=== PATIENT | male | born 1975 | race Caucasian/White ===

== ENCOUNTER 2017-07-04 13:15 | Emergency (ER) | payer BC ==
[~2017-07-04] VITALS: Ht 172.7 cm; Wt 96.5 kg
[2017-07-04 13:20] VITALS: Ht 172.7 cm; Wt 96.5 kg
[2017-07-04] MEDS ORDERED: CLOT30CR24 TOP (15:10)
--- NOTE | 2017-07-04 15:49 | ERD ---
ER Documentation Chief Complaint Date/Time DATE: 07/04/17 TIME: 15:42 Chief Complaint VOMITING,ABDOMINAL PAIN,RASHES ON JOCE LOWER EXT. HPI 41-year-old male complaining of abdominal pain and vomiting since this morning. He vomited twice this morning, last episode was at 8 AM. Patient also reports soft stool 2 today. He had epigastric abdominal pain during vomiting, but no abdominal pain right now. Patient has history of gastritis. Denies fever or chills. Denies respiratory symptoms. Patient also complaining of pruritic rash 1 week. Patient stated the rash started on the bilateral inner ankles, along the sock line. Last few days the rash had spread to his right thigh. Denies pain or swelling. ROS All systems reviewed and are negative except as per history of present illness. Medications Home Meds Active Scripts Clotrimazole* (Clotrimazole* AF) 1% - 30 Gm Cream.gm., 1 APPLIC TOP BID for 14 Days, TUB Prov:BULL SUAZO HISTOLOGY ASSISTANT 07/04/17 PMhx/Soc Medical and Surgical Hx: pt denies Medical Hx, pt denies Surgical Hx Physical Exam Vitals Vital Signs Date Time Temp Pulse Resp B/P Pulse Ox O2 Delivery O2 Flow Rate FiO2 07/04/17 13:20 98.2 60 18 108/62 Physical Exam General: Well-developed, well-nourished, conscious and coherent, in no distress Skin: Warm and dry, good texture and turgor. Erythematous papular macular lesions noted patient's bilateral medial ankles, and lateral right thigh. The lesions have circular, raised, erythematous borders. Head: Normocephalic without evidence of trauma Eyes: Sclera and conjunctivae normal; pupils equal, round, and reactive to light; extraocular movements are intact Neck: Supple without meningismus or adenopathy. Carotids are equal. Trachea midline. No bruits or JVD Chest: Normal AP diameter. Good expansion without retractions. Nontender. Lungs are clear to auscultate bilaterally with good tidal volume Heart: Regular rate and rhythm. No murmur, rub, or gallops heard Abdomen: Soft and nontender without masses, guarding, or rebound. Bowel sounds are active. No hepatosplenomegaly Back: Without spinal or CVA tenderness Extremities: Full range of motion. Good strength bilaterally. No clubbing, cyanosis, or edema. Peripheral pulses are intact. Sensation intact Neuro: Alert and oriented 4, GCS 15. Cranial nerves grossly intact. Motor and sensory exams nonfocal. Moves all extremities. Speech clear. Gait normal Procedures/MDM Patient is afebrile, does not have any abdominal tenderness on palpation. I doubt acute appendicitis, cholecystitis or other acute abdomen. Patient's symptoms is consistent with that of viral gastroenteritis. Patient does not have any active vomiting, is able to maintain by mouth fluid intake. Patient advised to increase fluid intake, and maintain a bland diet for next to 3 days. Patient also presents with skin lesions that are consistent with tinea corporis. Patient is advised to keep his skin clean and dry. Patient appears well, stable for discharge and outpatient management. Medical decision making shared with patient and family. Education provided to patient and family. Patient and family expressed understanding of the plan. Medications on discharge: Clotrimazole. Follow-up: Primary care provider in 2-3 days or return to ED if worse. Disclaimer: Inadvertent spelling and grammatical errors are likely due to EHR/ dictation software use and do not reflect on the overall quality of patient care. Also, please note that the electronic time recorded on this note does not necessarily reflect the actual time of the patient encounter. Departure Diagnosis: Primary Impression: Vomiting Additional Impression: Tinea corporis Condition: Stable Patient Instructions: Tinea Corporis, Vomiting (5Y-Adult) Referrals: [facility] YOU HAVE RECEIVED A MEDICAL SCREENING EXAM AND THE RESULTS INDICATE THAT YOU DO NOT HAVE A CONDITION THAT REQUIRES URGENT TREATMENT IN THE EMERGENCY DEPARTMENT. FURTHER EVALUATION AND TREATMENT OF YOUR CONDITION CAN WAIT UNTIL YOU ARE SEEN IN YOUR DOCTORS OFFICE WITHIN THE NEXT 1-2 DAYS. IT IS YOUR RESPONSIBILITY TO MAKE AN APPOINTMENT FOR FOLOW-UP CARE. IF YOU HAVE A PRIMARY DOCTOR --you should call your primary doctor and schedule an appointment IF YOU DO NOT HAVE A PRIMARY DOCTOR YOU CAN CALL OUR PHYSICIAN REFERRAL HOTLINE AT IF YOU CAN NOT AFFORD TO SEE A PHYSICIAN YOU CAN CHOSE FROM THE FOLLOWING [facility] [address] [facility] [address] [facility] [facility] [address] [facility] [address] [facility]. [facility] [address] [facility]. [facility]. [address] Additional Instructions: Call your primary care doctor TOMORROW for an appointment during the next 2-3 days.See the doctor sooner or return here if your condition worsens before your appointment time. BULL SUAZO NP Jul 04, 2017 15:49
== END 2017-07-04 15:35 | disposition home or self-care (01) ==
LOC: FTE 13:15
DX: R11.10 Vomiting, unspecified (principal); B35.4 Tinea corporis
CPT/HCPCS: 99283